=== PATIENT | male | born 1940 | race Caucasian/White ===

== ENCOUNTER 2017-04-15 13:16 | Outpatient (CLI) | payer OTHER ==
[~2017-04-15 13:16] MED LIST: CARDURA1 MG; CRESTOR10 MG; HUMALOG100 U/ML; LOTREL 5-10 MG1 CAP; NOVOLOG100 U/ML; [UNRECOGNIZED DRUG - OTHER]
== END 2017-04-15 13:26 | disposition home or self-care (01) ==
LOC: RAD 501 13:16
DX: R05 Cough (principal)

== ENCOUNTER 2018-04-29 12:40 | Outpatient (CLI) | payer OTHER | END 2018-04-29 13:21 | disposition home or self-care (01) | LOC: RAD 12:40 | DX: G56.03 Carpal tunnel syndrome, bilateral upper limbs (principal); M19.90 Unspecified osteoarthritis, unspecified site; M17.0 Bilateral primary osteoarthritis of knee ==

== ENCOUNTER 2020-01-08 12:59 | Outpatient (CLI) | payer OTHER | END 2020-01-08 13:11 | disposition home or self-care (01) | LOC: LAB 12:59 | PROVIDERS: ATTEND Internal Medicine Hematology & Oncology | DX: D50.8 Other iron deficiency anemias (principal); R79.89 Other specified abnormal findings of blood chemistry; I10 Essential (primary) hypertension; R74.02 Elevation of levels of lactic acid dehydrogenase [LDH]; K76.89 Other specified diseases of liver; D51.1 Vitamin B12 deficiency anemia due to selective vitamin B12 malabsorption with proteinuria; D51.0 Vitamin B12 deficiency anemia due to intrinsic factor deficiency; E06.3 Autoimmune thyroiditis; R97.0 Elevated carcinoembryonic antigen [CEA]; R97.8 Other abnormal tumor markers; R97.20 Elevated prostate specific antigen [PSA]; D51.3 Other dietary vitamin B12 deficiency anemia; M51.26 Other intervertebral disc displacement, lumbar region; M96.1 Postlaminectomy syndrome, not elsewhere classified; E11.40 Type 2 diabetes mellitus with diabetic neuropathy, unspecified; E78.2 Mixed hyperlipidemia; G30.0 Alzheimer's disease with early onset; N40.1 Benign prostatic hyperplasia with lower urinary tract symptoms ==

== ENCOUNTER 2020-01-11 15:49 | Outpatient (CLI) | payer OTHER | END 2020-01-11 15:56 | disposition home or self-care (01) | LOC: LAB 15:49 | PROVIDERS: ATTEND Internal Medicine Hematology & Oncology | DX: D50.8 Other iron deficiency anemias (principal); R19.5 Other fecal abnormalities; D51.3 Other dietary vitamin B12 deficiency anemia; M51.26 Other intervertebral disc displacement, lumbar region; M96.1 Postlaminectomy syndrome, not elsewhere classified; E11.40 Type 2 diabetes mellitus with diabetic neuropathy, unspecified; E11.9 Type 2 diabetes mellitus without complications; E78.2 Mixed hyperlipidemia; G30.0 Alzheimer's disease with early onset; N40.1 Benign prostatic hyperplasia with lower urinary tract symptoms ==

== ENCOUNTER → 2020-01-11 | Outpatient (CLI) | payer OTHER | END | disposition home or self-care (01) | LOC: SONOGRAMA 15:04 | PROVIDERS: ATTEND Internal Medicine Hematology & Oncology | DX: E04.2 Nontoxic multinodular goiter (principal); D51.3 Other dietary vitamin B12 deficiency anemia; M51.26 Other intervertebral disc displacement, lumbar region; M96.1 Postlaminectomy syndrome, not elsewhere classified; E11.40 Type 2 diabetes mellitus with diabetic neuropathy, unspecified; E78.2 Mixed hyperlipidemia; G30.0 Alzheimer's disease with early onset; N40.1 Benign prostatic hyperplasia with lower urinary tract symptoms ==